=== PATIENT | female | born 1970 | race African-American/Black ===

== ENCOUNTER 2017-08-25 23:23 | Emergency (ER) | payer OTHER ==
[~2017-08-25] VITALS: Ht 162.6 cm; Wt 95.3 kg
[2017-08-25] MEDS ORDERED: NKM (23:51)
[2017-08-26] MEDS ORDERED: Methocarbamol 750mg tab ORAL ONE
[2017-08-26] MEDS ORDERED: IBUPROFEN600 MG ORAL (00:03)
[2017-08-26] MEDS ORDERED: ROBAXIN-750750 MG PO (00:03)
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
[2017-08-26] MEDS ORDERED: ACETAMINOPHEN-1 EAC1 ORAL (00:46)
[2017-08-26 01:14] VITALS: BP 114/75
[2017-08-26 05:16] VITALS: BP 122/72
== END 2017-08-26 00:48 | disposition home or self-care (01) ==
LOC: EMR 23:50
DX: S16.1XXA Strain of muscle, fascia and tendon at neck level, initial encounter (principal); V43.52XA Car driver injured in collision with other type car in traffic accident, initial encounter; Y92.410 Unspecified street and highway as the place of occurrence of the external cause
CPT/HCPCS: 99284